=== PATIENT | female | born 1970 | race American Indian/Alaskan Native ===

== ENCOUNTER 2020-07-25 09:18 | Outpatient (CLI) | payer OTHER ==
--- NOTE | 2020-07-25 10:57 | Mammography Report ---
BILATERAL DIGITAL SCREENING MAMMOGRAM WITH CAD HISTORY: SCREENING MAMMO TECHNIQUE: Routine digital mammographic imaging performed. This examination was interpreted with rangel miles benefit of Computer-aided Detection analysis. COMPARISON: None available. FINDINGS: Breast Density: heterogeneously dense breast parenchymal pattern which somewhat lessens the sensitivi ty of the evaluation. Digital CC and MLO views demonstrate an asymmetry in the right lateral breast at middle depth on the cc view only. No suspicious findings in the left breast. IMPRESSION: Right lateral breast asymmetry for which additional mammographic views and possible ultrasound is rec ommended. BIRADS 0-Incomplete: Needs additional imaging evaluation NOTE: WE WILL RECALL THE PATIENT FOR THIS ADDITIONAL EVALUATION. FURTHER INFORMATION: According to the [employer], yearly mammograms are recommend ed starting at age 40 and continuing as long as a woman is in good health. Clinical Breast Exams shou ld be part of a periodic health exam-about every 3 years for women in their 20s and 30s and every yea r for women 40 and over. Breast self exam is an option for women starting in their 20s. Any breast ch steve noted on a breast self exam should be reported promptly to the patient's healthcare provider. Br east MRI is recommended for women with an approximately 20-25% or greater lifetime risk of breast can cer, including women with a strong family history of breast or ovarian cancer and women who have been treated for Hodgkin's disease. A negative Mammography report should not discourage follow up or biopsy of a clinically significant f inding and/or abnormality. Dense breast tissue may obscure small neoplasms. The patient will be entered into a reminder system with a target due date for the next screening mamm ogram. Signer Name: Kwasi Bustos MD Signed: 07/25/2020 10:52 AM Workstation Name: [id number]
== END 2020-07-25 09:19 | disposition home or self-care (01) ==
LOC: MAMMO 09:18
PROVIDERS: ATTEND Internal Medicine
DX: Z12.31 Encounter for screening mammogram for malignant neoplasm of breast (principal)
CPT/HCPCS: 77067

== ENCOUNTER 2020-07-25 14:00 | Emergency (ER) | payer OTHER ==
[2020-07-25 14:57] VITALS: BP 134/75
--- NOTE | 2020-07-25 15:13 | Emergency Department Report ---
Blank Doc - Documentation Documentation: 49-year-old female that presents with SOB and bilateral leg swelling. This initial assessment/diagnostic orders/clinical plan/treatment(s) is/are subject to change based on patient's health status, clinical progression and re- assessment by fellow clinical providers in the ED. Further treatment and workup at subsequent clinical providers discretion. Patient/guardians urged not to elope from the ED as their condition may be serious if not clinically assessed and managed. Initial orders include: 1- Patient sent to MAIN ED for further evaluation and treatment 2- cardiac workup
[2020-07-25 16:16] LABS: Hematocrit 39.3 % (30.3-42.9); Hemoglobin 13.3 gm/dl (10.1-14.3); Mean Corpuscular HGB Conc 34 % (30-34); Mean Corpuscular Volume 86 fl (79-97); Platelet Count 278 K/mm3 (140-440); Red Blood Count 4.55 M/mm3 (3.65-5.03); Red Cell Distribution Width 13.4 % (13.2-15.2)
[2020-07-25 16:34] LABS: INR 0.95 (0.87-1.13)
[2020-07-25 16:35] LABS: Partial Thromboplastin Time 25.1 Sec. (24.2-36.6)
[2020-07-25 16:44] LABS: Alanine Aminotransferase 22 units/L (7-56); Albumin 4.5 g/dL (3.9-5); BUN/Creatinine Ratio 18; Blood Urea Nitrogen 14 mg/dL (7-17); Calcium 10.2 mg/dL (8.4-10.2); Hemolysis Index 31
[2020-07-25 17:21] LABS: RBC Morphology Normal; Total Cells Counted 100
== END 2020-07-25 19:50 | disposition left against medical advice (07) ==
LOC: ED 14:00
DX: R06.02 Shortness of breath (principal); M79.89 Other specified soft tissue disorders; Z53.21 Procedure and treatment not carried out due to patient leaving prior to being seen by health care provider
CPT/HCPCS: 36415; 80053; 83880; 84484; 84703; 85007; 85025; 85610; 85730

== ENCOUNTER 2020-08-07 11:32 | Emergency (ER) | payer OTHER ==
[2020-08-07 11:52] VITALS: BP 163/87
== END 2020-08-08 07:00 | disposition left against medical advice (07) ==
LOC: ED 11:32
DX: R10.32 Left lower quadrant pain (principal); Z53.21 Procedure and treatment not carried out due to patient leaving prior to being seen by health care provider

== ENCOUNTER → 2020-08-23 20:57 | Emergency (ER) | payer OTHER | END | disposition left against medical advice (07) | LOC: ED 20:57 | DX: M79.602 Pain in left arm (principal); R42 Dizziness and giddiness; Z53.21 Procedure and treatment not carried out due to patient leaving prior to being seen by health care provider ==

== ENCOUNTER 2020-09-04 08:23 | Outpatient (CLI) | payer OTHER ==
--- NOTE | 2020-09-05 08:49 | Ultrasound Report ---
RIGHT DIAGNOSTIC MAMMOGRAM AND LIMITED RIGHT ULTRASOUND INDICATION: Evaluate finding noted previously in the right lateral breast on recent screening mammogr am. COMPARISON: 07/25/2020 FINDINGS: Mammographic views focused in the right lateral breast were performed to evaluate site of a previously noted finding which was seen in this region on the recent screening mammogram. There is a persistent ill-defined mass located in the right lateral breast. A targeted ultrasound of the right lateral breast was performed. This shows a 1.1 x 1.3 x 0.7 cm ill- defined heterogenous solid appearing mass located at the 9:00 position, 6 cm from the nipple. This wo uld appear to correspond with the mammographic finding. IMPRESSION: Right breast mass at the 9:00 position for which an ultrasound-guided biopsy is recommended. BI-RADS Category 4: Suspicious for Malignancy. Signer Name: Kwasi Bustos MD Signed: 09/05/2020 8:45 AM Workstation Name: [id number]
== END 2020-09-05 08:24 | disposition home or self-care (01) ==
LOC: MAMMO 09-05 08:23
PROVIDERS: ATTEND Internal Medicine
DX: N63.11 Unspecified lump in the right breast, upper outer quadrant (principal); R92.8 Other abnormal and inconclusive findings on diagnostic imaging of breast

== ENCOUNTER 2020-09-26 09:22 | Outpatient (CLI) | payer OTHER ==
--- NOTE | 2020-09-26 11:58 | Ultrasound Report ---
ULTRASOUND GUIDED RIGHT BREAST BIOPSY, 09/26/2020 CLINICAL INFORMATION / INDICATION: RT BREAST MASS. COMPARISON: Right breast ultrasound and diagnostic mammogram from 09/04/2020 PROCEDURE: Risks, benefits, and indications to the procedure were discussed with the patient in detail, includin g bleeding, infection, hematoma formation, and inadequate tissue sampling. The patient agreed to proc eed with both verbal and written consent. A timeout procedure was performed with two patient identifi ers. The breast was prepped and draped in the usual sterile fashion. Lidocaine 1% was used for local anest hesia. Under direct ultrasound guidance, 4 separate 14-gauge core samples were obtained of the right breast nodule. A biopsy marker was then placed. Biopsy device was removed and hemostasis achieved wi th manual pressure. A sterile dressing was applied to the skin. The patient tolerated the procedure without difficulty. No complications were encountered. Postbiopsy instructions were discussed with the patient and given in writing. Specimens were sent to pathology. IMPRESSION: 1. Technically successful ultrasound guided right breast biopsy. Biopsy results are pending and will be reported in an addendum. Signer Name: Glen Carlson MD Signed: 09/26/2020 11:57 AM Workstation Name: [id number]
--- NOTE | 2020-09-26 12:01 | Mammography Report ---
DIGITAL DIAGNOSTIC MAMMOGRAM RIGHT BREAST, 09/26/2020 CLINICAL INFORMATION / INDICATION: POST US BX TECHNIQUE: Digital right mammographic imaging was performed. This examination was interpreted with the benefit of Computer-aided Detection analysis. COMPARISON: Diagnostic mammogram and ultrasound from 09/04/2020 FINDINGS: Breast Density: The breasts are heterogeneously dense, which may obscure small masses. Satisfactory clip placement in the right breast nodule. IMPRESSION: Satisfactory clip placement in the right breast nodule. Follow up recommendation: Surgical consult Post biopsy imaging. A "normal" or negative report should not discourage follow up or biopsy of a clinically significant f inding. A written summary of these findings will be mailed to the patient. The patient will be entered into a mammography reporting system which will generate a reminder letter for the patient's next appointmen t at the appropriate interval. According to the [employer], yearly mammograms are recommended starting at age 40 and continuing as long as a woman is in good health. Breast MRI is recommended for women with an crystal roximately 20-25% or greater lifetime risk of breast cancer, including women with a strong family his tory of breast or ovarian cancer and women who have been treated for Hodgkin's disease. Signer Name: Glen Carlson MD Signed: 09/26/2020 12:00 PM Workstation Name: [id number]
== END 2020-09-26 09:23 | disposition home or self-care (01) ==
LOC: US 09:22
PROVIDERS: ATTEND Internal Medicine
DX: N63.11 Unspecified lump in the right breast, upper outer quadrant (principal); N64.89 Other specified disorders of breast; Z88.8 Allergy status to other drugs, medicaments and biological substances; Z79.899 Other long term (current) drug therapy; Z79.84 Long term (current) use of oral hypoglycemic drugs; I10 Essential (primary) hypertension
CPT/HCPCS: 88305

== ENCOUNTER 2021-01-18 14:17 | Emergency (ER) | payer OTHER ==
--- NOTE | 2021-01-18 14:33 | Event Note ---
ED Screening Note ED Screening Note: migraine for 4 days uc would not see because she needed neg covid no n/v no trauma went to gym today last migraine 2 y ago pmh pcos anxiety obese migraines rx clonidine hctz spironl. topamax latuda bp ok in triage ambulatory in nad neuro intact wo deficit This initial assessment/diagnostic orders/clinical plan/treatment(s) is/are subject to change based on patients health status, clinical progression and re- assessment by fellow clinical providers in the ED. Further treatment and workup at subsequent clinical providers discretion. Patient/guardian urged not to elope from the ED as their condition may be serious if not clinically assessed and managed. Initial orders include: reasses migraine rx
--- NOTE | 2021-01-18 15:21 | Cat Scan Report ---
CT head/brain wo con INDICATION / CLINICAL INFORMATION: 50 years Female; headache. TECHNIQUE: Routine CT head without contrast. All CT scans at this location are performed using CT dos e reduction for ALARA by means of automated exposure control. COMPARISON: None. FINDINGS: BRAIN / INTRACRANIAL CONTENTS: No acute hemorrhage, mass effect, midline shift, hydrocephalus, or acu te, large territorial infarct. No signs of significant atrophy or chronic infarct. Minimal, nonspecif ic white matter disease suspected. CRANIOCERVICAL JUNCTION: No significant abnormality. ORBITS: No significant abnormality of visualized orbits. SINUSES / MASTOIDS: Visualized paranasal sinuses and mastoid air cells are essentially clear. ADDITIONAL FINDINGS: Prominent soft tissue is seen in the roof the nasopharynx, presumably related to reactive adenoidal tissue. Please clinically correlate. IMPRESSION: 1. No focal mass, hemorrhage, hydrocephalus, or acute, large territorial infarct. Signer Name: Kostas Hebert MD, III Signed: 01/18/2021 3:16 PM Workstation Name: [id number]
[2021-01-18] MEDS ORDERED: BUTALB/ACETAMINOPHEN/CAFFEINE TAB PO ONE (15:23)
--- NOTE | 2021-01-18 15:23 | Emergency Department Report ---
ED Headache HPI - General Chief Complaint: Headache Stated Complaint: MIRGRAINE Time Seen by Provider: 01/18/21 14:33 Source: patient Exam Limitations: no limitations - History of Present Illness Initial Comments: 50 YO OBESE FEMALE COMES TO ER WITH "MIGRAINE FOR SEVERAL DAYS." DROVE SELF TO ER. 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 SHE STATES LAST MIGRAINE WAS 2 Y AGO. NO FOCAL DEF. NO CT ON RECORD DENIES DRUGS/ETOH DOES NOT SEE NEUROLOGY MD LOCAL DROVE SELF TO ER NO CP NO SOB VSS IN TRIAGE Timing/Duration: other Quality: moderate Head Injury Location: global Recent Head Trauma: no recent headache/trauma Modifying Factors: improves with: exposure to light Associated Symptoms: denies symptoms Allergies/Adverse Reactions: Allergies amlodipine [From Norvasc] Allergy (Verified 07/25/20 14:54) Unknown lisinopril Allergy (Verified 07/25/20 14:54) Angioedema nifedipine [From Procardia] Allergy (Verified 07/25/20 18:04) Swelling Home Medications: Ambulatory Orders Lisinopril/Hydrochlorothiazide [Zestoretic 20-25 mg] 1 tab PO QDAY 02/24/14 Metformin HCl [Glucophage] 1,000 mg PO DAILY 02/24/14 Potassium Chloride [K-Dur] 10 meq PO QDAY #5 tablet 02/24/14 atenoloL [Tenormin] 50 mg PO DAILY 02/24/14 Butalb/Acetaminophen/Caffeine [Fioricet 50-300-40 mg CAP] 1 cap PO Q8HR PRN #12 cap 01/18/21 ED Review of Systems ROS: Stated complaint: MIRGRAINE Other details as noted in HPI Comment: All other systems reviewed and negative ED Past Medical Hx - Past Medical History Previous Medical History?: Yes Hx Hypertension: Yes Additional medical history: Cardiomegaly, Pcos - Surgical History Past Surgical History?: Yes Additional Surgical History: Tubaligation 2001 - Social History Smoking Status: Never Smoker Substance Use Type: None - Medications Home Medications: Home Medications Medication Instructions Recorded Confirmed Last Taken Type Lisinopril/Hydrochlorothiazide 1 tab PO QDAY 02/24/14 02/24/14 02/24/14 09:00 History [Zestoretic 20-25 mg] Metformin HCl [Glucophage] 1,000 mg PO DAILY 02/24/14 02/24/14 02/23/14 20:00 History 1000 mg Potassium Chloride [K-Dur] 10 meq PO QDAY #5 tablet 02/24/14 Unknown Rx atenoloL [Tenormin] 50 mg PO DAILY 02/24/14 02/24/14 02/24/14 09:00 History 50 mg Butalb/Acetaminophen/Caffeine 1 cap PO Q8HR PRN #12 cap 01/18/21 Unknown Rx [Fioricet 50-300-40 mg CAP] ED Physical Exam - General Limitations: No Limitations General appearance: alert, in no apparent distress - Head Head exam: Present: atraumatic, normocephalic - Eye Eye exam: Present: normal appearance - ENT ENT exam: Present: mucous membranes moist - Neck Neck exam: Present: normal inspection - Respiratory Respiratory exam: Present: normal lung sounds bilaterally. Absent: respiratory distress - Cardiovascular Cardiovascular Exam: Present: regular rate, normal rhythm. Absent: systolic murmur, diastolic murmur, rubs, gallop - GI/Abdominal GI/Abdominal exam: Present: soft, normal bowel sounds - Extremities Exam Extremities exam: Present: normal inspection - Back Exam Back exam: Present: normal inspection - Neurological Exam Neurological exam: Present: alert, oriented X3 - Psychiatric Psychiatric exam: Present: normal affect, normal mood - Skin Skin exam: Present: warm, dry, intact, normal color. Absent: rash ED Course Vital Signs 01/18/21 14:40 Temperature 97.9 F Pulse Rate 90 Respiratory 18 Rate Blood Pressure 144/79 [Right] O2 Sat by Pulse 98 Oximetry ED Medical Decision Making - Radiology Data Radiology results: report reviewed, image reviewed NAP - Medical Decision Making CT NEG MEDICATED WITH BERNARDO DC HOME WITH DC POC AND PCP REFERRAL. PT VERBALIZES UNDERSTANDING OF DC POC Vital Signs 01/18/21 14:40 Temperature 97.9 F Pulse Rate 90 Respiratory 18 Rate Blood Pressure 144/79 [Right] O2 Sat by Pulse 98 Oximetry - Differential Diagnosis RO INTRACRANIAL ETIO Critical care attestation.: If time is entered above; I have spent that time in minutes in the direct care of this critically ill patient, excluding procedure time. ED Disposition Clinical Impression: Migraine Disposition: DC-01 TO HOME OR SELFCARE Is pt being admited?: No Does the pt Need Aspirin: No Condition: Stable Instructions: Recurrent Migraine Headache, [id number] Additional Instructions: rest STAY WELL HYDRATED WITH WATER MED ORDERED TODAY FOLLOW UP WITH PCP REFERRAL BELOW Prescriptions: Butalb/Acetaminophen/Caffeine [Fioricet 50-300-40 mg CAP] 1 cap PO Q8HR PRN #12 cap PRN Reason: Migraine Headache Referrals: MARIA ELENA MILLER MD [Staff Physician] - 3-5 Days Time of Disposition: 15:26
[2021-01-18 16:05] VITALS: BP 116/80
== END 2021-01-18 16:05 | disposition home or self-care (01) ==
LOC: ED 14:17
DX: G43.909 Migraine, unspecified, not intractable, without status migrainosus (principal); I10 Essential (primary) hypertension; Z98.51 Tubal ligation status; Z79.899 Other long term (current) drug therapy; Z88.8 Allergy status to other drugs, medicaments and biological substances
CPT/HCPCS: 70450

== ENCOUNTER 2021-06-25 08:28 | Emergency (ER) | payer OTHER ==
[2021-06-25 08:52] VITALS: BP 138/86
--- NOTE | 2021-06-25 10:52 | Emergency Department Report ---
ED General Adult HPI - General Chief complaint: Upper Respiratory Infection Stated complaint: POSS SINUS INFECTION Time Seen by Provider: 06/25/21 09:23 Source: patient Mode of arrival: Ambulatory Limitations: No Limitations - History of Present Illness Initial comments: 50-year-old -Finnish female patient presents with complaints of sinus pain and pressure with right-sided facial swelling for the past few days. She states her symptoms started approximately 2 months ago and have worsened recently. Patient reports a history of recurrent sinusitis and states her symptoms are similar to her prior infections. She denies any dental pain, fever/chills/sweats, throat pain, cough, shortness of breath, or vision changes. She rates her current pain as a 7/10 in severity states it is not improving with Benadryl. Pain radiates to her right ear. No hearing changes per patient - Related Data Home Medications Medication Instructions Recorded Confirmed Last Taken Lisinopril/Hydrochlorothiazide 1 tab PO QDAY 02/24/14 02/24/14 02/24/14 09:00 [Zestoretic 20-25 mg] Metformin HCl [Glucophage] 1,000 mg PO DAILY 02/24/14 02/24/14 02/23/14 20:00 1000 mg atenoloL [Tenormin] 50 mg PO DAILY 02/24/14 02/24/14 02/24/14 09:00 50 mg Previous Rx's Medication Instructions Recorded Last Taken Type Potassium Chloride [K-Dur] 10 meq PO QDAY #5 tablet 02/24/14 Unknown Rx Butalb/Acetaminophen/Caffeine 1 cap PO Q8HR PRN #12 cap 01/18/21 Unknown Rx [Fioricet 50-300-40 mg CAP] Amoxicillin/Potassium Clav 1 each PO BID 10 Days #20 tablet 06/25/21 Unknown Rx [Augmentin 875-125 Tablet] Levocetirizine Dihydrochloride 5 mg PO QHS PRN #30 tablet 06/25/21 Unknown Rx [Xyzal] Prednisone [predniSONE 10 mg 10 mg PO .TAPER #1 tab.ds.pk 06/25/21 Unknown Rx (6-Day Pack, 21 Tabs)] Allergies Allergy/AdvReac Type Severity Reaction Status Date / Time amlodipine [From [facility]] Allergy Unknown Verified 07/25/20 14:54 lisinopril Allergy Angioedema Verified 07/25/20 14:54 nifedipine [From Procardia] Allergy Swelling Verified 07/25/20 18:04 ED Review of Systems ROS: Stated complaint: POSS SINUS INFECTION Other details as noted in HPI Constitutional: denies: chills, diaphoresis, fever, malaise, weakness ENT: denies: ear pain Respiratory: denies: cough Cardiovascular: denies: chest pain Skin: denies: change in color Neurological: denies: headache, weakness, numbness, paresthesias Hematological/Lymphatic: denies: swollen glands ED Past Medical Hx - Past Medical History Previous Medical History?: Yes Hx Hypertension: Yes Additional medical history: Cardiomegaly, Pcos - Surgical History Past Surgical History?: Yes Additional Surgical History: Tubaligation 2001 - Social History Smoking Status: Never Smoker Substance Use Type: None - Medications Home Medications: Home Medications Medication Instructions Recorded Confirmed Last Taken Type Lisinopril/Hydrochlorothiazide 1 tab PO QDAY 02/24/14 02/24/14 02/24/14 09:00 History [Zestoretic 20-25 mg] Metformin HCl [Glucophage] 1,000 mg PO DAILY 02/24/14 02/24/14 02/23/14 20:00 History 1000 mg Potassium Chloride [K-Dur] 10 meq PO QDAY #5 tablet 02/24/14 Unknown Rx atenoloL [Tenormin] 50 mg PO DAILY 02/24/14 02/24/14 02/24/14 09:00 History 50 mg Butalb/Acetaminophen/Caffeine 1 cap PO Q8HR PRN #12 cap 01/18/21 Unknown Rx [Fioricet 50-300-40 mg CAP] Amoxicillin/Potassium Clav 1 each PO BID 10 Days #20 tablet 06/25/21 Unknown Rx [Augmentin 875-125 Tablet] Levocetirizine Dihydrochloride 5 mg PO QHS PRN #30 tablet 06/25/21 Unknown Rx [Xyzal] Prednisone [predniSONE 10 mg 10 mg PO .TAPER #1 tab.ds.pk 06/25/21 Unknown Rx (6-Day Pack, 21 Tabs)] ED Physical Exam - General Limitations: No Limitations General appearance: alert, in no apparent distress, obese - Head Head exam: Present: atraumatic, normocephalic - Eye Eye exam: Present: normal appearance. Absent: scleral icterus, conjunctival injection, periorbital swelling, periorbital tenderness Pupils: Present: other (No swelling of the face noted, however there is significant tenderness to palpation of the right maxillary sinuses) - ENT ENT exam: Present: normal exam, normal orophraynx, TM's normal bilaterally - Neck Neck exam: Present: normal inspection - Respiratory Respiratory exam: Absent: respiratory distress - Cardiovascular Cardiovascular Exam: Present: regular rate - Neurological Exam Neurological exam: Present: alert, oriented X3, normal gait - Psychiatric Psychiatric exam: Present: normal affect, normal mood - Skin Skin exam: Present: warm, dry, intact, normal color. Absent: rash, erythema ED Course Vital Signs 06/25/21 08:51 Temperature 98.2 F Pulse Rate 85 Respiratory 18 Rate Blood Pressure 138/86 [Right] O2 Sat by Pulse 98 Oximetry ED Medical Decision Making - Medical Decision Making 50-year-old -Finnish female patient presents with complaints of sinus pain and pressure with right-sided facial swelling for the past few days. She states her symptoms started approximately 2 months ago and have worsened recently. Patient reports a history of recurrent sinusitis and states her symptoms are similar to her prior infections. She denies any dental pain, fever/chills/sweats, throat pain, cough, shortness of breath, or vision changes. She rates her current pain as a 7/10 in severity states it is not improving with Benadryl. Pain radiates to her right ear. No hearing changes per patient Right maxillary sinus tenderness to palpation noted on exam. Given duration of symptoms, will treat for acute bacterial sinusitis. Recommend follow-up with ENT given history of recurrent sinusitis. Patient is well-appearing, her vitals are within normal notes, she is stable for discharge home. Discussed diagnosis and signs and symptoms that should prompt immediate return to the emergency department in detail patient verbalizes understanding. Critical care attestation.: If time is entered above; I have spent that time in minutes in the direct care of this critically ill patient, excluding procedure time. ED Disposition Clinical Impression: Acute bacterial sinusitis Disposition: 01 HOME / SELF CARE / HOMELESS Is pt being admited?: No Condition: Stable Instructions: Sinusitis, Adult Prescriptions: Levocetirizine Dihydrochloride [Xyzal] 5 mg PO QHS PRN #30 tablet PRN Reason: Congestion Amoxicillin/Potassium Clav [Augmentin 875-125 Tablet] 1 each PO BID 10 Days #20 tablet Prednisone [predniSONE 10 mg (6-Day Pack, 21 Tabs)] 10 mg PO .TAPER #1 tab.ds.pk Referrals: TONY DANIELS MD [Staff Physician] - 3-5 Days Forms: Work/School Release Form(ED) Time of Disposition: 10:52
== END 2021-06-25 12:03 | disposition home or self-care (01) ==
LOC: ED 08:28
DX: J01.80 Other acute sinusitis (principal); B96.89 Other specified bacterial agents as the cause of diseases classified elsewhere; I10 Essential (primary) hypertension; I51.7 Cardiomegaly; E28.2 Polycystic ovarian syndrome; Z98.890 Other specified postprocedural states; Z88.8 Allergy status to other drugs, medicaments and biological substances
CPT/HCPCS: 99282

== ENCOUNTER 2021-08-13 10:02 | Outpatient (CLI) | payer OTHER ==
--- NOTE | 2021-08-13 18:41 | Mammography Report ---
DIGITAL SCREENING MAMMOGRAM WITH CAD, 08/13/2021 CLINICAL INFORMATION / INDICATION: Routine screening mammography. TECHNIQUE: Digital bilateral 2D mammography was obtained in the craniocaudal and mediolateral obliqu e projections. This examination was interpreted with the benefit of Computer-Aided Detection analysis . COMPARISON: 07/25/2020 FINDINGS: Breast Density: The breasts are heterogeneously dense, which may obscure small masses. No dominant mass, suspicious calcifications, or architectural distortion in either breast. Previously noted mass in the lateral right breast which was subsequently biopsied in the interim, has mostly disappeared. Biopsy clip is present. Otherwise, no significant interval change. IMPRESSION: No mammographic evidence of malignancy. Follow up recommendation: Routine yearly BI-RADS Category 2: Benign. A "normal" or negative report should not discourage follow up or biopsy of a clinically significant f inding. A written summary of these findings will be mailed to the patient. The patient will be entered into a mammography reporting system which will generate a reminder letter for the patient's next appointmen t at the appropriate interval. The [employer] recommends yearly mammograms starting at age 40 and continuing as l jem as a woman is in good health. Breast MRI is recommended for women with an approximate 20-25% or greater lifetime risk of breast cancer, including women with a strong family history of breast or ova bob cancer or who have been treated for Hodgkin's disease. Signer Name: Aleksandra Song MD Signed: 08/13/2021 6:37 PM Workstation Name: [email or web address]
== END 2021-08-13 10:03 | disposition home or self-care (01) ==
LOC: MAMMO 10:02
PROVIDERS: ATTEND Internal Medicine
DX: Z12.31 Encounter for screening mammogram for malignant neoplasm of breast (principal)
CPT/HCPCS: 77067